=== PATIENT | male | born 1965 | race Caucasian/White ===

== ENCOUNTER 2016-12-23 13:10 | Inpatient (IN) | payer MEDICARE, MEDICAID ==
[~2016-12-23] VITALS: Ht 175.2 cm; Wt 87.3 kg
[~2016-12-23 13:10] MED LIST: BUPROPION HCL150 M3 PO; FERRIMIN 150150 M1; IRON90 MG PO; NKHM; NOVAPLUS V0.09 MG/Ac IH; ULTRAM50 MG PO; VITAMIN C1 TAB
[2016-12-23 13:15] VITALS: BP 152/87
[2016-12-23 13:58] LABS: BILIRUBIN NEGATIVE (NEGATIVE); BLOOD TRACE-INTACT (NEGATIVE); CLARITY CLEAR (CLEAR); COLOR YELLOW (YELLOW); GLUCOSE NEGATIVE (NEGATIVE); KETONE NEGATIVE (NEGATIVE); LEUKO ESTERASE NEGATIVE (NEGATIVE); NITRITE NEGATIVE (NEGATIVE); PROTEIN 1+ (NEGATIVE)
[2016-12-23 14:02] LABS: BASO % 0.5 % (0.0-1.0); EOS # 0.1 10*3/uL (0.0-0.4); EOS % 1.4 % (1.0-4.0); HEMATOCRIT 37.5 % (42.0-52.0); HEMOGLOBIN 11.3 g/dl (14.0-18.0); LYMPH # 1.8 10*3/uL (1.3-4.4); MEAN CELL VOLUME 71.6 fl (80.0-94.0); MEAN CORPUSCULAR HGB 21.6 pg (27.0-31.0); MEAN CORPUSCULAR HGB CONC 30.1 g/dl (33.0-37.0); MEAN PLATELET VOLUME 11.3 fl (9.6-12.3); MONO # 0.8 10*3/uL (0.1-1.0); MONO % 9.8 % (3.0-9.0); NEUT # 5.3 10*3/uL (2.3-7.9); NEUT % 65.9 % (47.0-73.0); PLATELET COUNT AUTOMATED 262 10*3/uL (130-400); RED BLOOD COUNT 5.24 10*6/uL (4.50-5.90); RED CELL DISTRI WIDTH 21.4 % (0-14.5)
[2016-12-23 14:06] LABS: BACTERIA TRACE; MUCOUS TRACE; URINE REFLEX COMMENT NO (NO); WBC 0-2 wbc/hpf (0-5)
[2016-12-23 14:08] LABS: PROTHROMBIN TIME 10.6 SECONDS (9.0-12.4)
[2016-12-23 14:20] LABS: ALBUMIN 3.7 gm/dl (3.1-4.5); ALKALINE PHOSPHATASE 207 U/L (45-117); BILIRUBIN, TOTAL 0.2 mg/dl (0.2-1.0); BUN 19 mg/dl (7-24); CARBON DIOXIDE 27 mmol/L (21-32); CHLORIDE 106 mmol/L (98-107); CKMB 0.9 ng/ml (0.5-3.6); CPK 119 U/L (39-308); EST GLOM FILT AFRICAN AMERICAN > 60 ml/min; GLUCOSE 99 mg/dL (65-99); MAGNESIUM 2.2 mg/dL (1.5-2.1); SGOT/AST 25 IU/L (3-35); SGPT/ALT 28 U/L (12-78); SODIUM 142 mmol/L (136-145); TOTAL PROTEIN 7.2 gm/dL (6.4-8.2)
[2016-12-23 14:21] LABS: TROPONIN I < 0.015 ng/ml (<0.045)
[2016-12-23 17:44] VITALS: BP 133/90
[2016-12-23 20:00] VITALS: BP 148/86; BP 163/86
[2016-12-24] VITALS: BP 131/83
[2016-12-24 06:35] LABS: BASO % 0.1 % (0.0-1.0); HEMATOCRIT 35.7 % (42.0-52.0); HEMOGLOBIN 10.6 g/dl (14.0-18.0); LYMPH # 0.7 10*3/uL (1.3-4.4); LYMPH % 9.2 % (27.0-41.0); MEAN CELL VOLUME 71.7 fl (80.0-94.0); MEAN CORPUSCULAR HGB 21.3 pg (27.0-31.0); MEAN CORPUSCULAR HGB CONC 29.7 g/dl (33.0-37.0); MEAN PLATELET VOLUME 11.8 fl (9.6-12.3); MONO # 0.1 10*3/uL (0.1-1.0); MONO % 1.3 % (3.0-9.0); NEUT # 6.8 10*3/uL (2.3-7.9); PLATELET COUNT AUTOMATED 234 10*3/uL (130-400); RED BLOOD COUNT 4.98 10*6/uL (4.50-5.90); RED CELL DISTRI WIDTH 21.5 % (0-14.5); WHITE BLOOD COUNT 7.6 10*3/uL (4.8-10.8)
[2016-12-24 07:09] LABS: BUN 20 mg/dl (7-24); CARBON DIOXIDE 28 mmol/L (21-32); CHLORIDE 105 mmol/L (98-107); CHOLESTEROL 109 mg/dL (<200); EST GLOM FILT AFRICAN AMERICAN > 60 ml/min; GLUCOSE 147 mg/dL (65-99); HDL CHOLESTEROL 40 mg/dl (40-60); LDL CHOLESTEROL 63 mg/dL (9-159); POTASSIUM 4.3 mmol/L (3.5-5.1); SODIUM 139 mmol/L (136-145); TRIGLYCERIDES 30 mg/dl (<150); VLDL CHOLESTEROL 6 mg/dL (6-40)
[2016-12-24 07:15] LABS: HEMOGLOBIN A1c 5.6 % (4.8-5.6); THYROID STIM HORMONE (HS) 0.475 uIU/ml (0.358-4.75)
[2016-12-24 07:19] LABS: FOLIC ACID 14.51 ng/mL (>5.38)
[2016-12-24 08:00] VITALS: BP 156/70
[2016-12-24] MEDS ORDERED: BUPROPION HCL150 M3 PO (10:38)
[2016-12-24] MEDS ORDERED: LEVAQUIN500 M2 PO (10:38)
[2016-12-24] MEDS ORDERED: NOVAPLUS V0.09 MG/Ac IH (10:38)
[2016-12-24] MEDS ORDERED: PREDNISONE10 MG PO (10:38)
[2016-12-24 11:01] LABS: VITAMIN D, 25-HYDROXY 22.6 ng/mL (30-100)
== END 2016-12-24 11:00 | disposition home or self-care (01) | DRG 192 ==
LOC: ED 13:10 → 4E 15:55 → EDHOLD 15:55 → 4E 16:08
PROVIDERS: Emergency Medicine; Family Medicine
DX: J44.0 Chronic obstructive pulmonary disease with (acute) lower respiratory infection (principal); I78.0 Hereditary hemorrhagic telangiectasia; I11.9 Hypertensive heart disease without heart failure; D50.9 Iron deficiency anemia, unspecified; F17.200 Nicotine dependence, unspecified, uncomplicated; E55.9 Vitamin D deficiency, unspecified; J44.1 Chronic obstructive pulmonary disease with (acute) exacerbation; J20.9 Acute bronchitis, unspecified; R91.1 Solitary pulmonary nodule; I15.9 Secondary hypertension, unspecified; R51 Headache; Z90.49 Acquired absence of other specified parts of digestive tract; Z80.1 Family history of malignant neoplasm of trachea, bronchus and lung; Z79.51 Long term (current) use of inhaled steroids; Z79.899 Other long term (current) drug therapy

== ENCOUNTER 2017-01-31 18:49 | Emergency (ER) | payer MEDICARE, MEDICAID ==
[~2017-01-31] VITALS: Ht 175.2 cm; Wt 81.2 kg
--- NOTE | ~2017-01-31 | EKG ---
[place], [place] ELECTROCARDIOGRAM REPORT NAME: REGULO RADFORD UNIT #: [id number] ROOM: DOCTOR: RALPH BLOCK MD BIRTHDATE: [birth year] DOS: 01/31/2017 TIME: 1945. FINDINGS: Normal sinus rhythm at rate of 97, mild baseline artifact, otherwise normal electrocardiogram. RALPH BLOCK MD CM:EKGRPT:ELECTROCARDIOGRAM REPORT [id number] RALPH BLOCK MD
[~2017-01-31 18:49] MED LIST changes: +LEVAQUIN500 M2 PO; +PREDNISONE10 MG PO
[2017-01-31 19:56] LABS: BASO % 0.3 % (0.0-1.0); EOS # 0.1 10*3/uL (0.0-0.4); EOS % 0.7 % (1.0-4.0); HEMATOCRIT 29.8 % (42.0-52.0); HEMOGLOBIN 8.8 g/dl (14.0-18.0); LYMPH # 1.3 10*3/uL (1.3-4.4); MEAN CELL VOLUME 71.3 fl (80.0-94.0); MEAN CORPUSCULAR HGB 21.1 pg (27.0-31.0); MEAN CORPUSCULAR HGB CONC 29.5 g/dl (33.0-37.0); MONO % 10.3 % (3.0-9.0); NEUT # 6.9 10*3/uL (2.3-7.9); NEUT % 74.3 % (47.0-73.0); PLATELET COUNT AUTOMATED 275 10*3/uL (130-400); RED BLOOD COUNT 4.18 10*6/uL (4.50-5.90); RED CELL DISTRI WIDTH 17.6 % (0-14.5); WHITE BLOOD COUNT 9.3 10*3/uL (4.8-10.8)
[2017-01-31 20:06] LABS: INTERNATIONAL NORM RATIO 1.1 (2.0-3.5); PROTHROMBIN TIME 11.2 SECONDS (9.0-12.4)
[2017-01-31 20:13] LABS: BUN 12 mg/dl (7-24); EST GLOM FILT AFRICAN AMERICAN > 60 ml/min; GLUCOSE 105 mg/dL (65-99); POTASSIUM 3.9 mmol/L (3.5-5.1); SODIUM 142 mmol/L (136-145)
[2017-01-31 20:14] LABS: ALBUMIN 3.5 gm/dl (3.1-4.5); ALKALINE PHOSPHATASE 209 U/L (45-117); BILIRUBIN, TOTAL 0.3 mg/dl (0.2-1.0); CARBON DIOXIDE 27 mmol/L (21-32); CHLORIDE 106 mmol/L (98-107); SGOT/AST 34 IU/L (3-35); SGPT/ALT 25 U/L (12-78)
[2017-01-31 20:19] LABS: TROPONIN I < 0.015 ng/ml (<0.045)
[2017-01-31] MEDS ORDERED: NORCO 5-325 TA1 EACH PO (21:05)
[2017-01-31] MEDS ORDERED: AUGMENTIN 875875 MG PO (21:05)
== END 2017-01-31 21:07 | disposition home or self-care (01) ==
LOC: ED 18:49
PROVIDERS: Student in an Organized Health Care Education/Training Program
DX: K04.7 Periapical abscess without sinus (principal); F17.200 Nicotine dependence, unspecified, uncomplicated; I10 Essential (primary) hypertension; I78.0 Hereditary hemorrhagic telangiectasia; E55.9 Vitamin D deficiency, unspecified; Z90.49 Acquired absence of other specified parts of digestive tract; Z98.890 Other specified postprocedural states; Z79.899 Other long term (current) drug therapy